=== PATIENT | female | born 1945 | race Caucasian/White ===

== ENCOUNTER 2017-04-14 16:39 | Emergency (ER) | payer MEDICARE ==
[2017-04-14 17:08] VITALS: BP 205/87
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
== END 2017-04-14 19:07 | disposition home or self-care (01) ==
LOC: ED 16:39
DX: S09.90XA Unspecified injury of head, initial encounter (principal); R51 Headache; Z86.69 Personal history of other diseases of the nervous system and sense organs; V49.9XXA Car occupant (driver) (passenger) injured in unspecified traffic accident, initial encounter; Y93.9 Activity, unspecified; Y92.9 Unspecified place or not applicable
CPT/HCPCS: 70450; 72125; 99282

== ENCOUNTER 2017-06-10 07:37 | Day surgery (SDC) | payer MEDICARE ==
--- NOTE | 2017-05-12 08:15 | HP ---
CC: Dr. Tegan Benítez. * ADMISSION HISTORY AND PHYSICAL: DATE OF ADMISSION: 05/27/17 ATTENDING SURGEON: Donna Weber MD * (DICTATED BY SUHAIL HATCH) CHIEF COMPLAINT: Hyperparathyroidism. HISTORY OF PRESENT ILLNESS: This is a 72-year-old female who had noted that her serum calcium levels had been elevated. Looking back, this appears to be the case since at least 2010 though she did have a couple of normal serum calciums in 2016. She had undergone workup in 2016 including an ultrasound on 04/13/16 of the thyroid and para-thyroid, which was a normal study and a nuclear medicine parathyroid scan on that same day, which was also normal study. More recently her serum calciums have been consistently elevated (10.7 in November, and 10.8 more recently on 04/20/17) An intact PTH was elevated at 12.9 (upper limit of normal 9.3). Her vitamin D level is low normal at 21.5. She was seen by Dr. Grayson and a CT scan with contrast was performed on 03/18. 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 The patient met with Dr. Weber on 02/02/17. Dr. Weber did perform an in-office ultrasound which she felt confirmed the presence of a left upper pole abnormal parathyroid gland. She does not have any history of kidney stones, but does have osteopenia by DEXA scan. She does have chronic constipation, which is attributed to chronic narcotic use for neuropathic pain. She has had symptoms of fatigue, but is also treated for Parkinson's disease and has chronic severe scoliosis. Dr. Weber has discussed with her the indications for surgery, the risks, benefits, and alternatives and she understands the expected perioperative course. She would like to proceed as scheduled with parathyroidectomy. PAST MEDICAL HISTORY: 1. Hyperparathyroidism as noted above. 2. Parkinson's disease (followed by Dr. Betancourt). 3. Chronic scoliosis with neuropathic pain on chronic opioid maintenance. 4. 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 5. Hypertension. PAST SURGICAL HISTORY: Includes; 1. EDVIN without BSO for fibroids. No reported surgical or anesthesia complications. 2. Bilateral cataract extraction DRUG ALLERGIES: None (propranolol was listed, but she states that the only problem was it was not of any benefit for her tremors). CURRENT MEDICATIONS: 1. Atenolol 50 mg once daily. 2. Carbidopa/levodopa 25-100 one tablet 3 times daily. 3. Immediate release morphine sulfate 15 mg 2 tablets q.p.m. 4. Senokot 1 to 2 tablets daily. She also takes the following supplements: 1. DHA. 2. Flaxseed oil. 3. Vitamin B12. 4. Vitamin D3. DRUG ALLERGIES: None. FAMILY HISTORY: Negative for any anesthesia problems or bleeding disorders. There is a question of blood clots in family members (mother had brain blood clot and maternal grandfather had lower extremity circulation problems, but nothing in either case to suggest hereditary VTE disorder). SOCIAL HISTORY: The patient lives alone. She is retired from nursing work. She denies tobacco use. She does drink a couple of glasses of wine per week. She denies any other recreational drug use. REVIEW OF SYSTEMS: General: No recent constitutional symptoms or acute illnesses. Her weight has been stable. Cardiovascular: No chest pain, palpitations, history of KS or angina. She is treated for hypertension. Respiratory: No history of asthma, chronic cough, or shortness of breath. GI: Chronic constipation. Colonoscopy done at approximately 10 years ago with normal findings at that time and repeat exam recommended in 10 years. No interval problems other than the constipation. : No problems reported, though her chart notes indicate some urinary frequency, urgency, and occasional incontinence. Endocrine: No diabetes or thyroid dysfunction. See also above per HPI. Neuro/Psych: She is followed by Dr. Betancourt for her Parkinson's disease. She was recently referred for occupational therapy. PHYSICAL EXAMINATION GENERAL: Well-nourished, small female in no acute distress. She has obvious scoliosis. VITAL SIGNS: Height 5 feet 1 inches, weight 106 pounds, BMI 19.4. Temperature 99.3, blood pressure 140/74, pulse 72, respirations 16. HEENT: Pupils equal, round, and reactive. EOMs intact. No conjunctival pallor. Oropharynx: Teeth in good repair. No intraoral lesions. NECK: No lymphadenopathy in the cervical or supraclavicular regions. No thyromegaly or discrete thyroid masses. LUNGS: Clear to auscultation. No wheezes. HEART: Regular rate and rhythm. No murmur noted. ABDOMEN: Soft, nontender to palpation. No palpable masses or organomegaly, though exam somewhat limited by her severe scoliosis. BACK AND EXTREMITIES: Scoliosis as noted. Trace edema in left lower extremity. No significant edema on the right. GENITALIA: Not done. RECTAL: Not done. NEUROLOGIC: Grossly intact, though specific exam not performed at this time. SKIN: Warm and dry. No suspicious rashes or lesions. IMPRESSION: Hyperparathyroidism. PLAN: Parathyroidectomy. SUHAIL HATCH [id number]/[facility] #: [id number] K[place]LEY
[~2017-06-10 07:37] MED LIST: Buffered Lidocaine 0.9% SYRIN* 5 ML/SYR SYRINGE INTRADERM ONE; Dexamethasone IV* 4 MG/ML 1 ML (4 MG) IV SLOW PU ONE; Famotidine IV* 10 MG/ML 2 ML (20 mg) IV ONE
[2017-06-10] MEDS ORDERED: Mivacurium Chloride* 20 MG/10 ML VIAL IV ONE (08:35)
[2017-06-10] MEDS ORDERED: Propofol* 10 MG/ML 20 ML BTL IV PUSH ONE (08:35)
[2017-06-10] MEDS ORDERED: fentaNYL* 50 MCG/ML 2 ML VIAL (100 MCG VIAL) ONE ×2 (08:36→11:44)
[2017-06-10] MEDS ORDERED: Lidocaine 2% PF * 5 ML VIAL ONE (08:36)
[2017-06-10] MEDS ORDERED: EPHEDrine (Pressors)* 50 MG/ML VIAL ONE (09:07)
[2017-06-10] MEDS ORDERED: Bupivacaine 0.25% SDV* 30 ML ONE (09:07)
[2017-06-10] MEDS ORDERED: Phenylephrine INJ* 10 MG/ML 1 ML VIAL (10 MG) ONE (09:10)
[2017-06-10] MEDS ORDERED: oxyCODONE/Acetamin 5/325 MG* TAB PO PRN ×2 (09:21→11:12)
[2017-06-10] MEDS ORDERED: HYDROcodone/ACETAMIN 5-325 MG* 1 TAB PO PRN (09:21)
[2017-06-10] MEDS ORDERED: DiMENhydriNATE IV* 50 MG/ML VIAL IV PUSH PRN (09:21)
[2017-06-10] MEDS ORDERED: Naloxone* 0.4 MG/ML 1 ML VIAL IV PRN (09:21)
[2017-06-10] MEDS ORDERED: Ondansetron INJ* 2 MG/ML VIAL ONE (10:08)
--- NOTE | 2017-06-10 11:15 | OP ---
Operative Report - Blank - Operative Report Date of Operation: 06/10/17 Note: Pre-op: Hyperparathyroidism Post-op: Same Procedure: Parathyroidectomy Surgeon: Dr. Weber Youth Care Specialist: SUHAIL De La Cruz Anaesthesia: GETA Fluids: LR 1500 cc EBL: Minimal Catheter: None Drains: None Specimen: Parathyroid gland Findings: See dictated op note
[2017-06-10] MEDS ORDERED: oxyCODONE/Acetamin 5/325 MG* TAB ONE (11:44)
[2017-06-10] MEDS: fentaNYL* 50 MCG/ML 2 ML VIAL (100 MCG VIAL) IV PRN ×2 (11:47→13:30)
[2017-06-10] MEDS ORDERED: Morphine ORAL.SOLN 10 mg* 2 MG/ML UDC 5 ml PO PRN (13:36)
[2017-06-10] MEDS ORDERED: Labetalol IV* 5 MG/ML 20 ML VIAL ONE (14:02)
[2017-06-10 15:29] VITALS: BP 168/71
--- NOTE | 2017-06-11 10:07 | OP ---
CC: Dr. Tegan Benítez * DATE OF OPERATION: 06/10/17 - [facility] DATE OF : 47 SURGEON: Donna Weber MD TIMBER HEWER: SUHAIL Guzman PRE-OP DIAGNOSIS: Hyperparathyroidism. POST-OP DIAGNOSIS: Hyperparathyroidism. OPERATIVE PROCEDURE: Parathyroidectomy. INDICATIONS: Ms. Trevino is a 72-year-old woman who presented to the office with symptomatic hyperparathyroidism prompting the plan for surgical intervention. DESCRIPTION OF THE PROCEDURE: She was brought to the operative room, placed on the OR table in supine position and given general anesthesia. The neck was prepped and draped in the usual sterile fashion and after infiltrating with local anesthetic, an incision was made along the line that had been marked preoperatively. Subcutaneous tissue was then divided with electrocautery through the platysma muscles. Flaps were developed superiorly through the thyroid notch and inferiorly through the sternal notch. The strap muscles were then divided along the midline and retracted laterally over the left side of the thyroid gland. This is where in the upper pole a suspected abnormal parathyroid was located. The upper pole of the thyroid was taken down using clips and ligature to control small vessels that approach the gland. Once the upper pole was freed up, it was retracted anteriorly and medially, and this region eventually exposed an abnormal appearing parathyroid gland. This was resected free from the surrounding tissue again using clips to control small vessels that approached the gland and once it was removed from the neck, it was handed off. After 10 minutes, a rapid PTH was sent and eventually the result came back at 2.9 where the preoperative rapid PTH had been 11.7. It was confirmed that the abnormal gland was indeed the adenomatous gland causing the hyperparathyroidism and so a closure was accomplished. This was done with 3-0 Vicryl to reapproximate the strap muscles, 4-0 Vicryl was used to close the platysma muscle and the skin was closed with 4-0 Surgipro in a subcuticular fashion. Steri-Strips and a dry fluffy dressings were applied. All sponge and instrument counts were correct. The patient tolerated the procedure well and was transferred to recovery in a stable condition. [id number]/[facility] #: [id number] MTDD
== END 2017-06-10 15:48 | disposition home or self-care (01) ==
LOC: OR 07:37
PROVIDERS: ATTEND Surgery
DX: E21.0 Primary hyperparathyroidism (principal); G20 Parkinson's disease; M41.80 Other forms of scoliosis, site unspecified; Z79.891 Long term (current) use of opiate analgesic; I10 Essential (primary) hypertension
CPT/HCPCS: 36415; 83970; 88305; A9270-GY; J2405; J2704; J3010

== ENCOUNTER 2021-08-11 14:25 | Observation (INO) ==
[2021-08-11 16:15] LABS: ABS Lymphocytes 0.6 10^3/ul (1.0-4.8); ABS Neutrophils 13.7 10^3/ul (1.5-7.7); Hematocrit 47 % (35-47); Hemoglobin 15.8 g/dL (12.0-16.0); Lymphocyte % 3.8 %; Mean Corpuscular HGB Conc 34 g/dL (31-36); Mean Corpuscular Hemoglobin 28 pg (27-31); Mean Corpuscular Volume 84 fL (80-97); Mean Platelet Volume 7.4 fL (7.4-10.4); Platelet Count 284 10^3/uL (150-450); Red Blood Count 5.59 10^6 /uL (3.70-4.87); Red Cell Distribution Width 14 % (10-15); White Blood Count 15.4 10^3/uL (3.5-10.8)
[2021-08-11 16:44] LABS: Albumin 4.9 g/dL (3.2-5.2); Albumin/Globulin Ratio 1.8 (1-3); Calcium 9.8 mg/dL (8.6-10.3); Globulin 2.8 g/dL (2-4); Potassium 4.3 mmol/L (3.5-5.0); Total Protein 7.7 g/dL (6.4-8.9); eGFR CKD-EPI 90.8 (>60)
[2021-08-11] MEDS ORDERED: Lactated Ringers 1000 ml BAG 1,000 ML IV ONE (16:45)
[2021-08-11 17:49] LABS: High Sensitivity Troponin 1 Hr 13 pg/mL (<15)
[2021-08-11] MEDS ORDERED: Carbidopa/Levodop 25/100 MG TAB PO ONE (18:40)
[2021-08-11 19:05] LABS: Urine Appearance Cloudy; Urine Bacteria Absent (Absent); Urine Bilirubin Negative (Negative); Urine Blood Negative (Negative); Urine Color Yellow; Urine Glucose Negative (Negative); Urine Ketones Negative (Negative); Urine Nitrite Negative (Negative); Urine Protein 2+(100 mg/dL) (Negative); Urine Red Blood Cell 3+(>10/hpf) (Absent); Urine Specific Gravity 1.021 (1.002-1.030); Urine Squamous Epithelial Cell Present (Absent); Urine Urobilinogen Negative (Negative); Urine White Blood Cell Trace(0-5/hpf) (Absent)
[2021-08-11] MEDS ORDERED: Ondansetron 4 mg VIAL 2 MG/ML 2 ml VIAL IV PRN (21:01)
[2021-08-11] MEDS ORDERED: NS 0.9% 1000 ml BAG 1,000 ML IV SCH (21:15)
[2021-08-11] MEDS: Enoxaparin 30 MG/0.3 ML SYR SUBCUT SCH (22:46)
[2021-08-12 06:00] LABS: ABS Basophils 0.1 10^3/ul (0-0.2); ABS Monocytes 1.1 10^3/ul (0-0.8); ABS Neutrophils 8.1 10^3/ul (1.5-7.7); Hematocrit 37 % (35-47); Hemoglobin 12.8 g/dL (12.0-16.0); Lymphocyte % 9.5 %; Mean Corpuscular HGB Conc 35 g/dL (31-36); Mean Corpuscular Hemoglobin 29 pg (27-31); Mean Corpuscular Volume 83 fL (80-97); Mean Platelet Volume 7.5 fL (7.4-10.4); Platelet Count 217 10^3/uL (150-450); Red Blood Count 4.47 10^6 /uL (3.70-4.87); Red Cell Distribution Width 14 % (10-15); White Blood Count 10.3 10^3/uL (3.5-10.8)
[2021-08-12 06:42] LABS: Albumin 3.6 g/dL (3.2-5.2); Albumin/Globulin Ratio 1.7 (1-3); Calcium 8.4 mg/dL (8.6-10.3); Globulin 2.1 g/dL (2-4); Total Bilirubin 0.8 mg/dL (0.2-1.0); Total Protein 5.7 g/dL (6.4-8.9); eGFR CKD-EPI 91.4 (>60)
[2021-08-12] MEDS: Carbidopa/Levodop 25/100 MG TAB PO SCH ×5 (08:56→20:17)
[2021-08-12] MEDS: Cholecalciferol (VIT D3) 1,000 unit TAB PO SCH (08:56)
[2021-08-12] MEDS: Enoxaparin 30 MG/0.3 ML SYR SUBCUT SCH (20:13)
[2021-08-12] MEDS ORDERED: Carbidopa/Levodop CR 50/200 TAB.CR PO SCH (21:00)
[2021-08-13 06:24] LABS: ABS Basophils 0.1 10^3/ul (0-0.2); ABS Lymphocytes 1.6 10^3/ul (1.0-4.8); ABS Monocytes 0.8 10^3/ul (0-0.8); Eosinophil % 0.6 %; Hematocrit 36 % (35-47); Hemoglobin 12.2 g/dL (12.0-16.0); Lymphocyte % 24.1 %; Mean Corpuscular HGB Conc 34 g/dL (31-36); Mean Corpuscular Hemoglobin 28 pg (27-31); Mean Corpuscular Volume 83 fL (80-97); Mean Platelet Volume 7.3 fL (7.4-10.4); Platelet Count 196 10^3/uL (150-450); Red Blood Count 4.29 10^6 /uL (3.70-4.87); Red Cell Distribution Width 14 % (10-15); White Blood Count 6.5 10^3/uL (3.5-10.8)
[2021-08-13 07:12] LABS: Calcium 8.3 mg/dL (8.6-10.3); Potassium 3.9 mmol/L (3.5-5.0); eGFR CKD-EPI 91.4 (>60)
[2021-08-13 07:22] LABS: TSH Ultra Thyroid Stim Horm 2.43 mcIU/mL (0.34-5.60)
[2021-08-13] MEDS: Carbidopa/Levodop 25/100 MG TAB PO SCH ×4 (08:12→20:42)
[2021-08-13] MEDS: Cholecalciferol (VIT D3) 1,000 unit TAB PO SCH (08:12)
[2021-08-13 09:14] LABS: Urine Benzodiazepine Screen None Detected (None Detect); Urine Cannabinoids Screen None Detected (None Detect); Urine Opiates Screen None Detected (None Detect)
[2021-08-13] MEDS ORDERED: Carbidopa/Levodop CR 50/200 TAB.CR PO SCH (23:00)
[2021-08-13] MEDS ORDERED: Enoxaparin 30 MG/0.3 ML SYR SUBCUT SCH (23:00)
[2021-08-14 05:46] LABS: ABS Basophils 0.1 10^3/ul (0-0.2); ABS Eosinophils 0.1 10^3/ul (0-0.6); ABS Lymphocytes 1.5 10^3/ul (1.0-4.8); ABS Monocytes 0.7 10^3/ul (0-0.8); ABS Neutrophils 4.5 10^3/ul (1.5-7.7); Eosinophil % 1.3 %; Hematocrit 41 % (35-47); Hemoglobin 13.6 g/dL (12.0-16.0); Lymphocyte % 21.8 %; Mean Corpuscular HGB Conc 33 g/dL (31-36); Mean Corpuscular Hemoglobin 28 pg (27-31); Mean Corpuscular Volume 84 fL (80-97); Mean Platelet Volume 7.7 fL (7.4-10.4); Platelet Count 217 10^3/uL (150-450); Red Blood Count 4.92 10^6 /uL (3.70-4.87); Red Cell Distribution Width 14 % (10-15); White Blood Count 6.9 10^3/uL (3.5-10.8)
[2021-08-14 06:05] LABS: Calcium 8.9 mg/dL (8.6-10.3); Potassium 3.6 mmol/L (3.5-5.0)
[2021-08-14] MEDS: Carbidopa/Levodop 25/100 MG TAB PO SCH ×2 (08:49→12:29)
[2021-08-14] MEDS: Cholecalciferol (VIT D3) 1,000 unit TAB PO SCH (08:50)
[2021-08-14 11:37] VITALS: BP 134/61
== END 2021-08-14 15:45 | disposition home or self-care (01) ==
LOC: ED 14:25 → EDHOLD 14:25 → SUATTDRO 21:01 → MED 08-12 00:19
PROVIDERS: ADMIT Hospitalist; ATTEND Internal Medicine

== ENCOUNTER 2023-01-09 09:25 | Inpatient (IN) ==
[2023-01-09] MEDS ORDERED: Lactated Ringers 1000 ml BAG 1,000 ML IV ONE (10:08)
[2023-01-09 11:36] LABS: ABS Eosinophils 0.1 10^3/uL (0.0-0.5); ABS Lymphocytes 0.9 10^3/uL (1.0-4.8); ABS Monocytes 0.6 10^3/uL (0.0-0.9); ABS Neutrophils 3.9 10^3/uL (1.5-7.6); Eosinophil % 1.1 %; Hematocrit 40.4 % (35-45); Hemoglobin 13.6 g/dL (11.5-14.3); Lymphocyte % 16.3 %; Mean Corpuscular Hemoglobin 27.8 pg (27-33); Mean Corpuscular Hgb Conc 33.5 g/dL (31-36); Mean Platelet Volume 6.8 fL (7.5-11.2); Platelet Count 264 10^3/uL (150-450); Red Blood Count 4.87 10^6/uL (3.63-4.92); Red Cell Distribution Width 14.4 % (12-17); White Blood Count 5.5 10^3/uL (3.8-11.8)
[2023-01-09 11:59] LABS: Albumin 4.1 g/dL (3.2-5.2); Calcium 9.2 mg/dL (8.6-10.3); Potassium 3.8 mmol/L (3.5-5.0); Total Bilirubin 0.7 mg/dL (0.2-1.0)
[2023-01-09 12:05] LABS: Albumin/Globulin Ratio 1.4 (1-3); Creatinine, Serum 0.86 mg/dL (0.51-0.95); Globulin 2.9 g/dL (2-4)
[2023-01-09 13:49] LABS: Urine Appearance Clear; Urine Bilirubin Negative (Negative); Urine Blood Negative (Negative); Urine Color Yellow; Urine Glucose Negative (Negative); Urine Ketones Trace (Negative); Urine Nitrite Negative (Negative); Urine Protein Negative (Negative); Urine Specific Gravity 1.011 (1.002-1.030); Urine Urobilinogen Negative (Negative)
[2023-01-09] MEDS: Fluticasone NASAL SPRAY 50MCG 16 gm SPRAY BTL INTRANASAL SCH (16:43)
[2023-01-09] MEDS ORDERED: Carbidopa/Levodop 25/100 MG TAB PO SCH (17:00)
[2023-01-09] MEDS: Carbidopa/Levodop 25/100 MG TAB PO SCH ×2 (18:59→20:24)
[2023-01-09] MEDS: Carbidopa/Levodop CR 50/200 TAB.CR PO SCH (20:23)
[2023-01-10] MEDS: Fluticasone NASAL SPRAY 50MCG 16 gm SPRAY BTL INTRANASAL SCH ×2 (02:20→15:10)
[2023-01-10] MEDS: Carbidopa/Levodop 25/100 MG TAB PO SCH ×4 (09:21→21:29)
[2023-01-10] MEDS: Cholecalciferol (VIT D3) 1,000 unit TAB PO SCH (09:22)
[2023-01-10 12:56] LABS: TSH Ultra Thyroid Stim Horm 1.34 mcIU/mL (0.34-5.60)
[2023-01-10 14:44] LABS: Vitamin B12 727 pg/mL (180-914)
[2023-01-10] MEDS: Carbidopa/Levodop CR 50/200 TAB.CR PO SCH (21:27)
[2023-01-11] MEDS: Fluticasone NASAL SPRAY 50MCG 16 gm SPRAY BTL INTRANASAL SCH ×2 (04:34→14:34)
[2023-01-11] MEDS: Cholecalciferol (VIT D3) 1,000 unit TAB PO SCH (08:09)
[2023-01-11] MEDS: Carbidopa/Levodop 25/100 MG TAB PO SCH ×4 (08:09→21:21)
[2023-01-11 11:23] LABS: Folate > 20.00 ng/mL (5.90-24.80)
[2023-01-11 11:24] LABS: Vitamin D Total 25(OH) 19.4 ng/mL (20-50)
[2023-01-11] MEDS ORDERED: Senna TAB 8.6 mg TAB PO PRN (20:35)
[2023-01-11] MEDS ORDERED: Magnesium Hydroxide LIQ 30 ML UDC PO PRN (20:35)
[2023-01-11] MEDS ORDERED: Polyethylene Glycol 3350 17 GM PACKET PO PRN (20:35)
[2023-01-11] MEDS: Carbidopa/Levodop CR 50/200 TAB.CR PO SCH (21:20)
[2023-01-11] MEDS: Magnesium Hydroxide LIQ 30 ML UDC PO SCH (22:56)
[2023-01-12] MEDS: Fluticasone NASAL SPRAY 50MCG 16 gm SPRAY BTL INTRANASAL SCH (03:36)
[2023-01-12] MEDS: Carbidopa/Levodop 25/100 MG TAB PO SCH ×3 (06:57→12:14)
[2023-01-12] MEDS: Cholecalciferol (VIT D3) 1,000 unit TAB PO SCH (08:39)
[2023-01-12] MEDS: Magnesium Hydroxide LIQ 30 ML UDC PO SCH (08:48)
[2023-01-12] MEDS ORDERED: hydrALAZINE 20 mg/ml 1 ML Vial IV IV SLOW PU ONE (12:03)
[2023-01-12 12:08] VITALS: BP 180/90
== END 2023-01-12 03:31 | DRG 57 ==
LOC: ED 09:25 → EDHOLD 09:25 → MEDTELE 01-11 00:25 → SUATTDRO 01-11 14:18 → MEDTELE 01-11 14:18
PROVIDERS: ADMIT Internal Medicine; ATTEND Internal Medicine

== ENCOUNTER 2024-01-27 07:00 | Observation (INO) ==
[2024-01-27 08:09] LABS: ABS Basophils 0.1 10^3/uL (0.0-0.1); ABS Eosinophils 0.1 10^3/uL (0.0-0.5); ABS Lymphocytes 1.3 10^3/uL (1.0-4.8); ABS Monocytes 0.6 10^3/uL (0.0-0.9); ABS Neutrophils 3.6 10^3/uL (1.5-7.6); Eosinophil % 1.2 %; Hematocrit 34.4 % (35-45); Hemoglobin 11.7 g/dL (11.5-14.3); Lymphocyte % 23.4 %; Mean Corpuscular Hemoglobin 27.8 pg (27-33); Mean Corpuscular Hgb Conc 34.1 g/dL (31-36); Mean Corpuscular Volume 81.5 fL (80-97); Mean Platelet Volume 7.3 fL (7.5-11.2); Nucleated Red Blood Cells % 0.1 %/100WBC (0.0-0.8); Platelet Count 225 10^3/uL (150-450); Red Blood Count 4.22 10^6/uL (3.63-4.92); Red Cell Distribution Width 14.4 % (12-17); White Blood Count 5.6 10^3/uL (3.8-11.8)
[2024-01-27 08:13] LABS: INR 1.01 (0.85-1.14)
[2024-01-27 08:35] LABS: High Sens Troponin Baseline 11 pg/mL (<15)
[2024-01-27 08:57] LABS: Anion Gap 7 mmol/L (2-16); Blood Urea Nitrogen 25 mg/dL (6-24); C Reactive Protein < 1.00 mg/L (<8.01); CO2 Carbon Dioxide 30 mmol/L (22-32); Calcium 9.1 mg/dL (8.6-10.3); Chloride 104 mmol/L (101-111); Creatinine, Serum 0.73 mg/dL (0.51-0.95); Glucose 96 mg/dL (70-100); Potassium 3.7 mmol/L (3.5-5.0); Sodium 141 mmol/L (135-145); eGFR CKD-EPI 84.6 (>60)
[2024-01-27 09:04] LABS: ALT < 3 U/L (7-52); AST 23 U/L (13-39); Albumin 3.9 g/dL (3.2-5.2); Albumin/Globulin Ratio 1.9 (1-3); Alkaline Phosphatase 65 U/L (35-149); Globulin 2.1 g/dL (2-4); Magnesium 1.9 mg/dL (1.9-2.7); Total Bilirubin 0.4 mg/dL (0.2-1.0)
[2024-01-27 09:38] LABS: High Sensitivity Troponin 1 Hr 11 pg/mL (<15)
[2024-01-27] MEDS: Carbidopa/Levodop 25/100 MG TAB PO ONE ×2 (10:31→11:40)
[2024-01-27 10:36] LABS: Urine Appearance Turbid; Urine Bilirubin Negative (Negative); Urine Blood Negative (Negative); Urine Color Light-Yellow; Urine Glucose Negative (Negative); Urine Ketones Negative (Negative); Urine Nitrite Negative (Negative); Urine Protein Negative (Negative); Urine Specific Gravity 1.014 (1.002-1.030); Urine Urobilinogen Negative (Negative); Urine pH 7.5 (5.0-8.0)
[2024-01-27] MEDS: Enoxaparin 40 MG/0.4 ML SYR SUBCUT SCH (16:04)
[2024-01-27] MEDS: Carbidopa/Levodop CR 50/200 TAB.CR PO SCH ×2 (16:04→21:40)
[2024-01-27] MEDS ORDERED: Polyethylene Glycol 3350 17 GM PACKET PO PRN (16:45)
[2024-01-27] MEDS ORDERED: Carbidopa/Levodop CR 50/200 TAB.CR PO SCH (17:00)
[2024-01-28 06:18] LABS: ABS Basophils 0.1 10^3/uL (0.0-0.1); ABS Eosinophils 0.1 10^3/uL (0.0-0.5); ABS Lymphocytes 1.8 10^3/uL (1.0-4.8); ABS Monocytes 0.6 10^3/uL (0.0-0.9); ABS Neutrophils 3.5 10^3/uL (1.5-7.6); Eosinophil % 1.5 %; Lymphocyte % 29.7 %; Mean Corpuscular Hemoglobin 27.9 pg (27-33); Mean Corpuscular Hgb Conc 34.2 g/dL (31-36); Mean Corpuscular Volume 81.7 fL (80-97); Mean Platelet Volume 7.3 fL (7.5-11.2); Nucleated Red Blood Cells % 0.1 %/100WBC (0.0-0.8); Platelet Count 218 10^3/uL (150-450); Red Blood Count 4.28 10^6/uL (3.63-4.92); Red Cell Distribution Width 14.2 % (12-17); White Blood Count 6.1 10^3/uL (3.8-11.8)
[2024-01-28 06:32] LABS: Calcium 8.8 mg/dL (8.6-10.3); Creatinine, Serum 0.65 mg/dL (0.51-0.95); Magnesium 1.9 mg/dL (1.9-2.7); Potassium 3.9 mmol/L (3.5-5.0); eGFR CKD-EPI 90.6 (>60)
[2024-01-28] MEDS: Carbidopa/Levodop CR 50/200 TAB.CR PO SCH (06:34)
[2024-01-30] MEDS: Lidocaine PATCH 5% PATCH TRANSDERM PRN (13:37)
[2024-01-30] MEDS: Carbidopa/Levodop CR 50/200 TAB.CR PO SCH ×2 (17:38→20:52)
[2024-02-01] MEDS: DULoxetine DR 30 mg CAP PO SCH (09:07)
[2024-02-01 14:12] VITALS: BP 127/63
== END 2024-02-01 14:30 ==
LOC: ED 07:00 → EDHOLD 07:00 → SUATTDRO 14:36 → MED 20:03
PROVIDERS: ADMIT Student in an Organized Health Care Education/Training Program; ATTEND Hospitalist